=== PATIENT | male | born 1970 | race Caucasian/White ===

== ENCOUNTER 2017-04-15 07:42 | Emergency (ER) | payer MEDICAID, OTHER ==
[~2017-04-15] VITALS: Wt 89.0 kg
[2017-04-15] MEDS ORDERED: DIPHENHYDRAMINE 50 MG INJ IV STA (08:14)
[2017-04-15] MEDS ORDERED: SOD CHLORIDE 0.9% 1,000 ML IV STA (08:14)
[2017-04-15] MEDS ORDERED: METOCLOPRAMIDE 10 MG INJ IV STA (08:14)
[2017-04-15] MEDS ORDERED: KETOROLAC 30 MG INJ IV STA (08:14)
--- NOTE | 2017-04-15 08:37 | RADRPT ---
PROCEDURE: CT Brain without. CLINICAL INDICATION: Headache. TECHNIQUE: A CT of the brain was performed on multidetector high-resolution CT scanner utilizing a xial sections from the skull base through the vertex without contrast. The scan was reviewed in sof t tissue brain and high frequency resolution bone algorithm windows. Images were reviewed on a high -resolution PACS workstation. One or more the following does reduction techniques were utilized: Aut omated exposure control, adjustment of the mA/ or kV according to patient's size, or use of iterativ e reconstruction technique. The exam CTDI = 43.16 mGy and the DLP = 630.2 mGy-cm. DICOM images are available. COMPARISON: None available. FINDINGS: The ventricles and sulci are age-appropriate. There is no intracranial hemorrhage, mass effect or mi dline shift. No abnormal intra-axial or extra-axial fluid collections are seen. The hi/white carlos er differentiation is preserved. No acute skull abnormality is noted. The visualized paranasal sinus es are essentially clear. IMPRESSION: 1. No acute intracranial hemorrhage, transcortical infarction or mass effect. RPTAT: [facility] .Wilder Rosales MD, MD Date Time Electronically viewed and signed by .Wilder Rosales MD, MD on 04/15/2017 08:37 .N/
[2017-04-15 08:49] LABS: ABNORMAL IP MESSAGE 1; BASOPHILS % 0.4 % (0.0-2.0); EOSINOPHILS % 0.1 % (0.0-7.0); HEMATOCRIT 44.8 % (42.0-52.0); HEMOGLOBIN 14.6 g/dl (14.0-18.0); LYMPHOCYTES # 0.6 10^3/ul (0.8-2.9); LYMPHOCYTES % 7.1 % (15.0-51.0); MEAN CORPUSCULAR HEMOGLOBIN 27.8 pg (29.0-33.0); MEAN CORPUSCULAR HGB CONC 32.6 g/dl (32.0-37.0); MEAN CORPUSCULAR VOLUME 85.2 fl (82.0-101.0); MEAN PLATELET VOLUME 10.6 fl (7.4-10.4); MONOCYTE # 1.1 10^3/ul (0.3-0.9); MONOCYTES % 14.1 % (0.0-11.0); NEUTROPHIL # 6.2 10^3/ul (1.6-7.5); NEUTROPHILS % 77.6 % (39.0-77.0); PLATELET COUNT 214 10^3/UL (140-415); POSITIVE DIFF @See below; RED BLOOD COUNT 5.26 10^6/ul (4.70-6.10); RED CELL DISTRIBUTION WIDTH 12.7 % (11.5-14.5)
[2017-04-15 09:07] LABS: ALBUMIN 4.4 g/dl (3.3-4.9); ALBUMIN/GLOBULIN RATIO 1.12; BILIRUBIN,INDIRECT 0.4 mg/dl (0-1.1); BILIRUBIN,TOTAL 0.4 mg/dl (0.2-1.3); CALCIUM 9.1 mg/dl (8.4-10.2); CREATININE 1.03 mg/dl (0.61-1.24); POTASSIUM 3.7 mmol/L (3.5-5.1); TOTAL PROTEIN 8.3 g/dl (6.1-8.1)
[2017-04-15] MEDS ORDERED: FIORICET PO (09:10)
--- NOTE | 2017-04-15 11:24 | ERD ---
ER Documentation Chief Complaint Chief Complaint FEVER AND BODY ACHES AND CHILLS FOR THE PAST 2 DAYS. HPI 47-year-old male complaining of fever body aches and headache 2 days. Patient states that he has not had any vomiting but does feel nauseous. Denies vision changes. Describes nasal congestion but no cough. Denies abdominal pain. Denies change in urination or bowel movements. States he normally has headaches however feels a swollen is a little worse than normal. Headache was a gradual onset. Denies medical problems. NKDA. Surgical history: Denies ROS All systems reviewed and are negative except as per history of present illness. Medications Home Meds Active Scripts Acetamin/Butalbital/Caffeine* (Fioricet*) [id number] Tab, 1 TAB PO Q6H Y for PAIN, #30 TAB Prov:ADILENE PARRISH PA-C 04/15/17 Allergies Allergies: Coded Allergies: No Known Allergy (Unverified , 04/15/17) PMhx/Soc History of Surgery: No Anesthesia Reaction: No Hx Neurological Disorder: No Hx Respiratory Disorders: No Hx Cardiac Disorders: No Hx Psychiatric Problems: No Hx Miscellaneous Medical Probl: No Hx Alcohol Use: No Hx Substance Use: No Hx Tobacco Use: No Physical Exam Vitals Vital Signs Date Time Temp Pulse Resp B/P Pulse Ox O2 Delivery O2 Flow Rate FiO2 04/15/17 07:44 99.9 102 21 105/66 98 Physical Exam GENERAL: The patient is well-appearing, well-nourished, in no acute distress HEENT: Atraumatic. Conjunctivae are pink. Pupils equal, round, and reactive to light. There is no scleral icterus. Tympanic membranes clear bilaterally. Oropharynx clear. No nystagmus or photophobia. NECK: C-spine is soft and supple. There is no meningismus. There is no cervical lymphadenopathy. No JVD. No bruits. No goiter. CHEST: Clear to auscultation bilaterally. There are no rales, wheezes or rhonchi. HEART: Regular rate and rhythm. No murmurs, clicks, rubs or gallops. No S3 or S4. EXTREMITIES: Equal pulses bilaterally. There is no peripheral clubbing, cyanosis or edema. No focal swelling or erythema. Full range of motion. Grossly neurovascularly intact. NEUROLOGIC: Alert and oriented. Cranial nerves II through XII intact. Motor strength in all 4 extremities with 5 out of 5 strength. Sensation grossly intact. Normal speech and gait. Babinski negative. DTR 2+ throughout. SKIN: There is no apparent rash or petechiae. The skin is warm and dry. Result Diagram: 04/15/1724 04/15/1724 Results 24 hrs Laboratory Tests Test 04/15/17 08:24 White Blood Count 8.010^3/ul Red Blood Count 5.2610^6/ul Hemoglobin 14.6g/dl Hematocrit 44.8% Mean Corpuscular Volume 85.2fl Mean Corpuscular Hemoglobin 27.8pg Mean Corpuscular Hemoglobin Concent 32.6g/dl Red Cell Distribution Width 12.7% Platelet Count 57761^3/UL Mean Platelet Volume 10.6fl Neutrophils % 77.6% Lymphocytes % 7.1% Monocytes % 14.1% Eosinophils % 0.1% Basophils % 0.4% Nucleated Red Blood Cells % 0.0/100WBC Neutrophils # 6.210^3/ul Lymphocytes # 0.610^3/ul Monocytes # 1.110^3/ul Eosinophils # 0.010^3/ul Basophils # 0.010^3/ul Nucleated Red Blood Cells # 0.010^3/ul Sodium Level 140mmol/L Potassium Level 3.7mmol/L Chloride Level 99mmol/L Carbon Dioxide Level 26mmol/L Anion Gap 19 Blood Urea Nitrogen 11mg/dl Creatinine 1.03mg/dl Glucose Level 121mg/dl Calcium Level 9.1mg/dl Total Bilirubin 0.4mg/dl Direct Bilirubin 0.00mg/dl Indirect Bilirubin 0.4mg/dl Aspartate Amino Transf (AST/SGOT) 26IU/L Alanine Aminotransferase (ALT/SGPT) 22IU/L Alkaline Phosphatase 118IU/L Total Protein 8.3g/dl Albumin 4.4g/dl Globulin 3.90g/dl Albumin/Globulin Ratio 1.12 Lipase 48U/L Current Medications Medications (Trade) Dose Ordered Sig/Gale Route PRN Reason Start Time Stop Time Status Last Admin Dose Admin Sodium Chloride (NS) 1,000 ml @ 1,000 mls/hr Q1H STAT IV 04/15/17 08:14 04/15/17 09:13 DC 04/15/17 08:29 Metoclopramide HCl (Reglan) 10 mg ONCE STAT IV 04/15/17 08:14 04/15/17 08:15 DC 04/15/17 08:28 Ketorolac Tromethamine (Toradol) 30 mg ONCE STAT IV 04/15/17 08:14 04/15/17 08:15 DC 04/15/17 08:28 Diphenhydramine HCl (Benadryl) 25 mg ONCE STAT IV 04/15/17 08:14 04/15/17 08:15 DC 04/15/17 08:29 Procedures/MDM DIAGNOSTIC IMAGING REPORT Patient: GWENDOLYN RITTER : 1970 Age: 47 Sex: M MR #: [id number] DOS: 04/15/17813 Ordering MD: JHONNY PARRISH PA-C Location: [facility] Room/Bed: PROCEDURE: CT Brain without. CLINICAL INDICATION: Headache. TECHNIQUE: A CT of the brain was performed on multidetector high-resolution CT scanner utilizing axial sections from the skull base through the vertex without contrast. The scan was reviewed in soft tissue brain and high frequency resolution bone algorithm windows. Images were reviewed on a high- resolution PACS workstation. One or more the following does reduction techniques were utilized: Automated exposure control, adjustment of the mA/ or kV according to patient's size, or use of iterative reconstruction technique. The exam CTDI = 43.16 mGy and the DLP = 630.2 mGy-cm. DICOM images are available. COMPARISON: None available. FINDINGS: The ventricles and sulci are age-appropriate. There is no intracranial hemorrhage, mass effect or midline shift. No abnormal intra-axial or extra- axial fluid collections are seen. The hi/white matter differentiation is preserved. No acute skull abnormality is noted. The visualized paranasal sinuses are essentially clear. IMPRESSION: 1. No acute intracranial hemorrhage, transcortical infarction or mass effect. MDM: 47-year-old male complaining of body aches and headache 2 days. Patient' s blood work, imaging and vital signs are normal. Patient's exam is within normal limits. I have low suspicion for meningitis or sepsis. Patient does not have nuchal rigidity on exam. I have low suspicion for bacterial HEENT infection. Patient symptoms improved with medication and fluids in the ED. Patient will be discharged with medication and told to follow-up with primary care within 1-2 days for close evaluation. She was told symptoms change or worsen to return immediately to the emergency room. All questions answered at discharge. Departure Diagnosis: Primary Impression: Headache Condition: Stable Patient Instructions: Self-Care for Headaches Referrals: COMMUNITY CLINICS YOU HAVE RECEIVED A MEDICAL SCREENING EXAM AND THE RESULTS INDICATE THAT YOU DO NOT HAVE A CONDITION THAT REQUIRES URGENT TREATMENT IN THE EMERGENCY DEPARTMENT. FURTHER EVALUATION AND TREATMENT OF YOUR CONDITION CAN WAIT UNTIL YOU ARE SEEN IN YOUR DOCTORS OFFICE WITHIN THE NEXT 1-2 DAYS. IT IS YOUR RESPONSIBILITY TO MAKE AN APPOINTMENT FOR FOLOW-UP CARE. IF YOU HAVE A PRIMARY DOCTOR --you should call your primary doctor and schedule an appointment IF YOU DO NOT HAVE A PRIMARY DOCTOR YOU CAN CALL OUR PHYSICIAN REFERRAL HOTLINE AT IF YOU CAN NOT AFFORD TO SEE A PHYSICIAN YOU CAN CHOSE FROM THE FOLLOWING [facility] [address] [facility] [address] [facility] [address] [facility] [address] [facility]. [facility] [address] [facility]. [facility]. [address] Additional Instructions: FOLLOW UP WITH YOUR PRIMARY CARE PHYSICIAN TOMORROW.Return to this facility if you are not improving as expected. ADILENE PARRISH PA-C Apr 15, 2017 11:24
== END 2017-04-15 09:25 | disposition home or self-care (01) ==
LOC: FTE 07:42
DX: R51 Headache (principal)
CPT/HCPCS: 36415; 70450; 80053; 83690; 85025; 96374; 96375; J1200; J1885; J2765; J7030; Z7502